=== PATIENT | female | born 1960 | race Caucasian/White ===

== ENCOUNTER 2017-12-06 14:18 | Emergency (ER) | payer MEDICAID ==
[2017-12-06] MEDS ORDERED: Lidocaine 2% Gel 5 mL TP ONE ×2 (14:28→14:36)
[2017-12-06] MEDS ORDERED: Triple Antibiotic 0.94 gm Pkt TP ONE (15:58)
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
--- NOTE | 2017-12-07 08:24 | Diagnostic Imaging Report ---
CT scan of the brain without intravenous contrast HISTORY: Headache, trauma Total DLP equals 784 CTDI equals 44.3 Axial sections were obtained from the base of the skull to vertex. The exam demonstrates extensive encephalomalacia occupies virtually the entire left cerebral hemisphere. Associated volume loss. Little residual parenchyma on the left side. Findings may be associated with the communication to the ventricular system and reflect porencephaly. No acute parenchymal abnormality seen within the right cerebral hemisphere. IMPRESSION: 1. 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 2. No acute abnormalities
--- NOTE | 2017-12-07 08:26 | Diagnostic Imaging Report ---
CT scan facial bones HISTORY: Pain, trauma Total DLP equals 591 CTDI equals 27.4 Axial sections were obtained through the facial bones. Additional sagittal and coronal reformatted images are provided. There is retention of normal bony margins about the orbits. No fractures. The zygomatic arches are intact. Nasal bones are intact. No focal abnormality seen about the mandible. Mucosal thickening noted through the right maxillary sinus. IMPRESSION: 1. No acute bony abnormalities 2. Mucosal thickening through the right maxillary sinus
== END 2017-12-06 18:14 | disposition home or self-care (01) ==
LOC: ER 14:18
DX: S01.511A Laceration without foreign body of lip, initial encounter (principal); S01.512A Laceration without foreign body of oral cavity, initial encounter; W22.03XA Walked into furniture, initial encounter; Y93.89 Activity, other specified; Y92.89 Other specified places as the place of occurrence of the external cause; Y99.8 Other external cause status
CPT/HCPCS: 70450-TC; 70486-TC; A4217; J0561; J1885; X6488; Z7502; Z7610